=== PATIENT | male | born 1970 | race Two or more races ===

== ENCOUNTER → 2020-10-24 13:37 | Outpatient (BNVA) | payer OTHER, SELFPAY | PROVIDERS: PCP Internal Medicine; Visit Provider Nurse Practitioner | DX: Z76.89 Persons encountering health services in other specified circumstances (principal) | CPT/HCPCS: Q3014 ==

== ENCOUNTER → 2020-11-28 08:41 | Outpatient (BNVA) | payer OTHER, SELFPAY | PROVIDERS: Visit Provider Physician Assistant | DX: Z13.89 Encounter for screening for other disorder (principal) | CPT/HCPCS: Q3014 ==

== ENCOUNTER 2021-04-10 12:50 | Outpatient (REF) | payer OTHER, SELFPAY ==
[2021-04-10 14:37] LABS: Alanine Aminotransferase 15 U/L (0-40); Albumin Level 3.9 g/dL (3.5-5.0); Alkaline Phosphatase 93 U/L (39-117); Anion Gap 12 (12-20); Aspartate Amino Transferase 14 U/L (5-37); Bilirubin Total 1.9 mg/dL (0.0-1.0); Blood Urea Nitrogen 7 mg/dL (9-16); Calcium 9.5 mg/dL (8.4-10.2); Carbon Dioxide 25 mmol/L (22-29); Chloride 109 mmol/L (96-108); Estimated Glomerular Filt Rate > 60; Glucose Random 149 mg/dL (60-115); Potassium 4.3 mmol/L (3.3-5.1); Sodium 142 mmol/L (135-145); Total Protein 6.9 g/dL (6.5-8.0)
[2021-04-10 14:57] LABS: Ferritin 140 ng/mL (20-250); TSH reflex Free T4 0.65 uIU/mL (0.32-4.0)
[2021-04-14 13:17] LABS: Gliadin Deamidated IgA Ab 5 Units; Gliadin Deamidated IgG Ab 2 Units
[2021-04-14 17:46] LABS: Transglutaminase Ab IgG 3 U/mL; Transglutaminase IgA 1 U/mL
== END 2021-04-10 12:51 | disposition home or self-care (01) ==
LOC: HO.LAB 12:50
PROVIDERS: PCP Internal Medicine; Referring Provider Internal Medicine; Visit Provider Nurse Practitioner
DX: K58.0 Irritable bowel syndrome with diarrhea (principal); K21.9 Gastro-esophageal reflux disease without esophagitis; D50.9 Iron deficiency anemia, unspecified; G71.11 Myotonic muscular dystrophy; R63.4 Abnormal weight loss; R00.0 Tachycardia, unspecified; Z12.11 Encounter for screening for malignant neoplasm of colon
CPT/HCPCS: 36415; 80053; 82728; 83516; 84443; 99212

== ENCOUNTER → 2021-05-26 12:24 | Outpatient (BNVA) | payer OTHER, SELFPAY | PROVIDERS: PCP Internal Medicine; Visit Provider Nurse Practitioner | CPT/HCPCS: Q3014 ==

== ENCOUNTER 2021-06-19 08:55 | Outpatient (REF) | payer OTHER, SELFPAY ==
--- NOTE | ~2021-06-19 | US_ITS ---
EXAMINATION: US ABDOMEN COMPLETE CLINICAL INFORMATION: [place]. COMPARISON: Abdominal ultrasound 12/31/2018. CT abdomen and pelvis 09/17/2019. MRI abdomen 10/29/2019. TECHNIQUE: Real-time imaging of the abdominal viscera. FINDINGS: PANCREAS: Head and body the pancreas are normal. The tail is not well visualized ABDOMINAL AORTA: The proximal, mid, and distal segments are normal in caliber. INFERIOR VENA CAVA: Visualized portions are normal. LIVER: Normal. The liver is normal in size. The liver contour is normal. Parenchymal echogenicity is normal. No focal hepatic lesion. There is no intrahepatic biliary duct dilatation seen. GALLBLADDER: The gallbladder appears contracted. The gallbladder wall may be thickened and echogenic. There may be a gallstone. This is similar to previous exam. COMMON BILE DUCT: Normal in caliber measuring 0.3 cm in diameter. RIGHT KIDNEY: There is a 1.3 x 1 x 1.2 cm cyst exophytic to the midpole. No hydronephrosis or renal calculi. The kidney measures 9.5 cm in maximum dimension. LEFT KIDNEY: Normal. No hydronephrosis. No renal calculi or focal parenchymal lesions. The kidney measures 9.5 cm in maximum dimension. SPLEEN: The spleen measures 12.8 cm in maximum dimension. This is similar to previous exam. FREE FLUID: None. US/US abdomen complete IMPRESSION: Normal-appearing liver. Contracted gallbladder. Gallbladder wall appears thickened and echogenic and there may be a gallstone. Upper normal-size spleen. Limited visualization of the tail of the pancreas.
== END 2021-06-19 08:56 | disposition home or self-care (01) ==
LOC: HO.US 08:55
PROVIDERS: PCP Internal Medicine; Visit Provider Nurse Practitioner
DX: K75.81 Nonalcoholic steatohepatitis (NASH) (principal)
CPT/HCPCS: 76700

== ENCOUNTER → 2021-07-07 15:51 | Outpatient (BNVA) | payer OTHER, SELFPAY | PROVIDERS: PCP Internal Medicine; Visit Provider Nurse Practitioner | DX: Z13.89 Encounter for screening for other disorder (principal) | CPT/HCPCS: Q3014 ==

== ENCOUNTER 2021-10-11 12:59 | Outpatient (REF) | payer OTHER, SELFPAY ==
--- NOTE | ~2021-10-11 | XR_ITS ---
EXAMINATION: XR FOOT, LEFT CLINICAL INFORMATION: Left foot pain. COMPARISON: No similar priors. TECHNIQUE: AP, lateral, and oblique views of the left foot. FINDINGS: Decreased bony mineralization. Joint spaces are in anatomic alignment. Subtle cortical irregularity in the dorsal surface of the navicular bone at the talonavicular articulation favors to represent degenerative osteoarthritis. Calcaneal enthesophytes. There is diffuse soft tissue thickening without unexpected radiopaque foreign bodies. XR/XR foot LT 2V IMPRESSION: Cortical irregularities of the navicular bone adjacent to the talonavicular articulation are likely degenerative enthesophytes. Correlate for pain at this site as a small fracture cannot be entirely excluded.
--- NOTE | ~2021-10-11 | XR_ITS ---
EXAMINATION: XR LUMBOSACRAL SPINE CLINICAL INFORMATION: Lower back pain. COMPARISON: No similar priors. TECHNIQUE: Three views of the lumbosacral spine. FINDINGS: Transitional anatomy with lumbarization of S1. No evidence of acute fractures or malalignment. Mild disc space narrowing and facet arthropathy in the lower lumbar spine. Sacroiliac joints are symmetric. Visualized bony structures of the pelvis are within normal limits. Nonobstructive bowel gas pattern. XR/XR lumbar spine 2-3V IMPRESSION: No acute fractures or malalignment. Mild lumbar spondylosis.
== END 2021-10-11 13:00 | disposition home or self-care (01) ==
LOC: HO.XRAY 12:59
PROVIDERS: PCP Internal Medicine; Visit Provider Internal Medicine
DX: M79.672 Pain in left foot (principal); M54.9 Dorsalgia, unspecified
CPT/HCPCS: 72100; 73620

== ENCOUNTER 2021-10-17 10:23 | Emergency (ER) | payer OTHER, SELFPAY ==
--- NOTE | ~2021-10-17 | XR_ITS ---
EXAMINATION: LUMBAR SPINE AND SACRUM AND COCCYX X-RAYS CLINICAL INFORMATION: Pain post fall COMPARISON: Previous lumbar spine x-ray 10/11/2021 TECHNIQUE: 3 views of the lumbar spine and 3 views of the sacrum and coccyx FINDINGS: Lumbar spine: Bone alignment is normal. No fracture or dislocation is seen. Disc spaces are normal. There is mild facet arthritis of the lower lumbar spine. Sacrum and coccyx: Bone alignment is normal. No fracture or dislocation is seen. The sacroiliac joints are normal. There are degenerative changes at the hip joints. XR/XR lumbar spine 2-3V IMPRESSION: No fracture or dislocation.
--- NOTE | ~2021-10-17 | XR_ITS ---
EXAMINATION:XR foot LT 2V, XR ankle LT 2V VIEWS ACQUIRED: 2 views ankle, 3 views foot frontal lateral oblique CLINICAL INFORMATION: Reason for Exam fall and pain COMPARISON: None available at the time of this dictation. FINDINGS: Nondisplaced horizontal fracture at the base of the proximal phalanx great toe. There are no other fractures or dislocation. Intertarsal and tarsometatarsal joints are intact. There are small posterior and inferior calcaneal spurs. Ankle mortise is preserved. Talar dome is intact. Medial and lateral malleoli are normal.. Intertarsal, tarsometatarsal, metatarsophalangeal and interphalangeal joints are intact. Surrounding soft tissues is normal. , XR/XR ankle LT 2V IMPRESSION: *Nondisplaced horizontal fracture through the base of the proximal phalanx great toe. *No dislocation, no other fractures. *Small calcaneal spurs.
--- NOTE | ~2021-10-17 | XR_ITS ---
EXAMINATION: LUMBAR SPINE AND SACRUM AND COCCYX X-RAYS CLINICAL INFORMATION: Pain post fall COMPARISON: Previous lumbar spine x-ray 10/11/2021 TECHNIQUE: 3 views of the lumbar spine and 3 views of the sacrum and coccyx FINDINGS: Lumbar spine: Bone alignment is normal. No fracture or dislocation is seen. Disc spaces are normal. There is mild facet arthritis of the lower lumbar spine. Sacrum and coccyx: Bone alignment is normal. No fracture or dislocation is seen. The sacroiliac joints are normal. There are degenerative changes at the hip joints. XR/XR sacrum coccyx min 2V IMPRESSION: No fracture or dislocation.
--- NOTE | ~2021-10-17 | XR_ITS ---
EXAMINATION:XR foot LT 2V, XR ankle LT 2V VIEWS ACQUIRED: 2 views ankle, 3 views foot frontal lateral oblique CLINICAL INFORMATION: Reason for Exam fall and pain COMPARISON: None available at the time of this dictation. FINDINGS: Nondisplaced horizontal fracture at the base of the proximal phalanx great toe. There are no other fractures or dislocation. Intertarsal and tarsometatarsal joints are intact. There are small posterior and inferior calcaneal spurs. Ankle mortise is preserved. Talar dome is intact. Medial and lateral malleoli are normal.. Intertarsal, tarsometatarsal, metatarsophalangeal and interphalangeal joints are intact. Surrounding soft tissues is normal. , XR/XR foot LT 2V IMPRESSION: *Nondisplaced horizontal fracture through the base of the proximal phalanx great toe. *No dislocation, no other fractures. *Small calcaneal spurs.
[2021-10-17 10:38] VITALS: BP 117/79; PULSE 90; RESP 19; TEMP 36.6; O2SAT 99; BMI 24.0
--- NOTE | 2021-10-17 10:41 | ED.FALL ---
HPI - Fall General Chief Complaint: Fall Stated Complaint: lt ankle pain s/p fall two days ago Time Seen by Provider: 10/17/21 10:39 Source: patient and EMS Mode of arrival: EMS Limitations: no limitations History of Present Illness HPI Narrative: [age] year male came in by ambulance for evaluation after mechanical fall. 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 Patient sustained a mechanical fall, as reported by EMS patient and mother live in a poor condition patient gets DISTRIBUTION MANAGER service for just helpful shower, otherwise unable to cook and prepare food for himself, order from outside. Related Data Home Medications Medication Instructions Recorded Confirmed famotidine 40 mg tablet 40 mg PO BEDTIME 10/24/20 08/30/21 Previous Rx's Medication Instructions Recorded loperamide 2 mg tablet 2 mg PO TID PRN #30 tab 06/13/21 (Anti-Diarrheal (loperamide)) food supplemt, lactose-reduced 1 ea PO BID 25 Days #5688 ml 08/30/21 (Ensure) loperamide 2 mg capsule 2 mg PO Q6H PRN #30 cap 09/25/21 Allergies Allergy/AdvReac Type Severity Reaction Status Date / Time cephalexin Allergy Intermediate diarrhea Verified 08/30/21 10:24 pioglitazone Allergy Intermediate diarrhea Verified 08/30/21 10:24 metformin AdvReac Intermediate diarrhea Verified 08/30/21 10:24 Review of Systems Review of Systems: All other systems are reviewed and are negative Constitutional: Reports as per HPI and Reports no additional constitutional complaints Eyes: Reports as per HPI and Reports no additional eye complaints Reports system reviewed and no additional complaints, except as documented Cardiovascular: Reports as per HPI and Reports no additional cardiovascular complaints Respiratory: Reports as per HPI and Reports no additional respiratory complaints Gastrointestinal: Reports as per HPI and Reports no additional gastrointestinal complaints Genitourinary: Reports no additional female genitourinary complaints Musculoskeletal: Reports no additional musculoskeletal complaints Skin/Breast: Reports system reviewed and no additional complaints, except as docu Psychiatric: Reports no additional psychiatric complaints Endocrine: Reports no additional endocrine complaints Hematologic/Lymphatic: Reports no additional hematologic/lymphatic complaints Allergic/Immunologic: Reports no additional allergic/immunologic complaints Reports system reviewed and no additional complaints, except as documented and Reports Abnormal speech present [facility] Past Medical History Medical History Back pain Blurry vision Family history of hypertension Hematuria Hypovitaminosis D Left foot pain Microcytic anemia Myotonic dystrophy Polyarthralgia Proteinuria Shoulder pain Surgical History No pertinent past surgical history Family History Family History Father Pacemaker Mother Arthritis Sister In good health Son In good health Social History Social History Household Members: Family Housing: Apartment Alcohol intake: former Patient Tobacco Use Status: Never used Tobacco e-Cigarette/Vaping Use: Never Used Second Hand Smoke Exposure: No Advance Directives: No Advance Directives Information Provided: No service: No Current occupational status: disabled Physical Exam Vital Signs: Vital Signs: Last Vital Signs Temp 98 F 10/17/21 10:38 Pulse 97 10/17/21 13:24 Resp 16 10/17/21 12:57 BP 96/65 10/17/21 13:24 Pulse Ox 96 10/17/21 13:24 BMI result Body Mass Index 24.0 Vital signs have been reviewed as appeared to be correct. Blood pressure normal. Heart rate normal. Respiration rate normal. Temperature normal. Oxygen saturation normal. Appearance: Alert. Oriented X3. No acute distress. Head: Normal external exam. Normocephalic. Atraumatic. No Le signs noted. No raccoon eyes noted Eyes: PERRLA. EOMI. Conjunctiva and sclera normal. Eyelids normal. ENT: TM's Normal. Pharynx normal. Uvula midline. Moist mucous membranes. No trismus noted. No drooling noted. No muffled voice noted. Neck: Normal inspection. Neck supple. FROM. No adenopathy. Thyroid Normal. No meningeal signs. No neck mass noted. CVS: Normal heart rate and rhythm. Heart sound normal. No murmurs noted. Pulses normal throughout. Respiratory: No respiratory distress. Painless inspiration. Breath sounds normal. No wheezes/rales/rhonchi noted. Chest nontender. No accessory muscle usage noted or decreased air movement noted. Abdomen: Soft and nontender. Bowel sounds normal in all 4 quadrants. No distention noted. No organomegaly noted. No visible injury noted. Back: No CVA tenderness. Full range of motion noted. Skin: Skin warm and dry. Normal skin color. Normal skin turgor. No rashes/lesions/lacerations noted. Extremities: Left foot exam: Mild tenderness over the great toe, in the left foot, no deformity, no step-off, neurovascularly is intact. Neuro: Oriented X 3. Course Course Course Narrative: Assessment and plan. [age] old male history of myotonic dystrophy status post mechanical fall as a result has left great toe fracture, reportedly by EMS to living condition at home with his mother, we obtained PT/case management social worker consultation while in the ED , PT is recommending home therapy with [facility] which will be arranged for by our case management social worker, patient also is active with [facility] client and has funeral home assistant that was contacted to evaluate the situation at home. Will apply postop shoe, unfortunately patient will not do well with crutches due to chronic muscular disease. MDM - Fall Lab Data Attestation: I reviewed the patient's lab results. Labs: Lab Results 10/17/21 Range/Units 12:54 Influenza Type A (PCR) NEGATIVE (Negative) Influenza Type B (PCR) NEGATIVE (Negative) RSV RNA Qual (PCR) NEGATIVE (Negative) SARS-CoV-2 RNA (RT-PCR) NEGATIVE (Negative) Imaging Data Left foot/ankle x-ray: Attestation: I personally reviewed and interpreted this imaging study as follows: Radiologist's impression: Nondisplaced horizontal fracture through the base of the proximal phalanx great toe. ? *No dislocation, no other fractures. ? *Small calcaneal spurs. Lumbar spine x-ray: Attestation: I personally reviewed and interpreted this imaging study as follows: Radiologist's impression: No fracture or dislocation.? Discharge Plan Discharge Clinical Impression: Fall, Fracture, phalanx, foot Patient Disposition: Home, Self-Care Instructions: Toe Fracture (ED), Post Surgical Shoe (ED) Prescriptions: No Action loperamide [Anti-Diarrheal (loperamide)] 2 mg tablet 2 mg PO TID PRN (Reason: for diarrhea) Qty: 30 RF: 1 loperamide 2 mg capsule 2 mg PO Q6H PRN (Reason: loose stool) Qty: 30 RF: 0 Ensure Liquid 1 ea PO BID 25 Days Qty: 5688 RF: 6 famotidine 40 mg tablet 40 mg PO BEDTIME RF: 0 Referrals: Thomas ARRIETA [Outside] - 2 days Porter Tan MD [Physician] - 1 week Bess Irving MD [Primary Care Provider] - 1 week
[2021-10-17 12:57] VITALS: BP 96/65; PULSE 97; RESP 16; O2SAT 96
[2021-10-17 13:24] VITALS: BP 96/65; PULSE 97; O2SAT 96
[2021-10-17 13:42] LABS: Influenza A PCR NEGATIVE (Negative); Influenza B PCR NEGATIVE (Negative); Resp Syncy Virus RNA Qual PCR NEGATIVE (Negative); SARS COV2 PCR INHOUSE NEGATIVE (Negative)
--- NOTE | 2021-10-17 13:50 | MHC.CM.ED ---
Received case management consult from Dr Desai. Patient came to ER via EMS after a fall. EMS was concerned patient not safe at home. Work up revealed left great toe fx. Physical therapy eval completed. Home services are recommended. Patient and his mother are well known to case management. Met with patient in regards to discharge planning. Patient lives with his mother, uses a walker for mobility and receives services through [facility]. Patient feels he can safely return home. Action chair van booked. [facility] with chart. T/W left a voicemail for Yun at [facility] requesting auth for [facility] for physical therapy and requesting Yun reach out to patient's healthcare insurance sales agent about EMS concerns. Referral made via [employer] to [facility]. Continue to monitor for d/c needs.
== END 2021-10-17 14:21 | disposition home or self-care (01) ==
PROVIDERS: Emergency Provider Emergency Medicine; PCP Internal Medicine
DX: S92.415A Nondisplaced fracture of proximal phalanx of left great toe, initial encounter for closed fracture (principal); W17.89XA Other fall from one level to another, initial encounter; G71.11 Myotonic muscular dystrophy; Y93.9 Activity, unspecified; Y92.039 Unspecified place in apartment as the place of occurrence of the external cause; Y99.9 Unspecified external cause status
CPT/HCPCS: 0241U; 72100; 72220; 73600; 73620; 97162; 99283; 99284

== ENCOUNTER 2022-04-25 10:59 | Outpatient (REF) | payer OTHER, SELFPAY ==
[2022-04-25 11:55] LABS: Basophils Percent Auto 0.4 % (0-2); Eosinophils Absolute Auto 0.2 X10*3/uL (0.0-0.4); Eosinophils Percent Auto 2.1 % (0-4); Hematocrit 40.6 % (42.0-52.0); Imm Gran Abs Auto 0.03 X10*3/uL (0.00-0.03); Imm Gran Pct Auto 0.4 % (0.0-0.4); Lymphocytes Absolute Auto 2.5 X10*3/uL (1.2-4.9); Lymphocytes Percent Auto 34.1 % (20-40); MANUAL DIFF FLAG SCAN; Mean Corpuscular HGB Conc 29.6 g/dl (31.0-36.0); Mean Corpuscular Hemoglobin 20.8 pg (27.0-33.0); Mean Corpuscular Volume 70.5 fL (80.0-98.0); Monocytes Absolute Auto 0.3 X10*3/uL (0.1-1.2); Monocytes Percent Auto 4.7 % (2-11); Neutrophils Absolute Auto 4.2 x10*3/uL (2.0-8.3); Neutrophils Percent Auto 58.3 % (45-73); PLT CLUMP 1; Red Blood Count 5.76 X10*6/uL (4.60-5.80); Red Cell Distribution Width 16.3 % (11.0-16.0); SCAN SMEAR FLAG 1
[2022-04-25 12:19] LABS: Platelet Count 109 X10*3/uL (160-400); SLIDE REVIEW VERIFIED; White Blood Count 7.2 X10*3/uL (4.8-10.8)
[2022-04-25 12:26] LABS: Alanine Aminotransferase 7 U/L (0-40); Albumin Level 4.1 g/dL (3.5-5.0); Alkaline Phosphatase 72 U/L (39-117); Anion Gap 15 (12-20); Aspartate Amino Transferase 15 U/L (5-37); Bilirubin Total 1.8 mg/dL (0.0-1.0); Blood Urea Nitrogen 7 mg/dL (9-16); Calcium 9.5 mg/dL (8.4-10.2); Carbon Dioxide 25 mmol/L (22-29); Chloride 114 mmol/L (96-108); Estimated Glomerular Filt Rate > 60; Glucose Random 120 mg/dL (60-115); Iron 63 mcg/dL (45-160); Percent Iron Saturation 24 % (15-50); Potassium 4.3 mmol/L (3.3-5.1); Sodium 150 mmol/L (135-145); Total Iron Binding Capacity 268 mcg/dL (228-428); Unsaturated Iron Binding 205 ug/dL
[2022-04-25 12:35] LABS: Vitamin D 25-OH Total 32.7 ng/mL (>30)
[2022-04-25 12:41] LABS: Ferritin 226 ng/mL (20-250); TSH reflex Free T4 0.27 uIU/mL (0.32-4.0)
[2022-04-25 13:59] LABS: Free T4 (Free Thyroxine) 1.09 ng/dL (0.71-1.85)
[2022-04-27 12:36] LABS: Alpha Fetoprotein 2.9 ng/mL (<6.1)
[2022-04-30 13:31] LABS: Anti Nuclear Antibody Screen NEGATIVE (NEGATIVE)
[2022-04-30 14:26] LABS: Mitochondrial Antibodies NEGATIVE (NEGATIVE)
[2022-05-01 11:37] LABS: Smooth Muscle Antibody <20 U (<20)
== END 2022-04-25 11:00 | disposition home or self-care (01) ==
LOC: HO.LAB 10:59
PROVIDERS: PCP Internal Medicine; Visit Provider Nurse Practitioner
DX: K58.0 Irritable bowel syndrome with diarrhea (principal); K75.81 Nonalcoholic steatohepatitis (NASH); R63.4 Abnormal weight loss; D50.9 Iron deficiency anemia, unspecified; R00.0 Tachycardia, unspecified; E55.9 Vitamin D deficiency, unspecified
CPT/HCPCS: 36415; 80053; 82105; 82306; 82728; 83540; 84439; 84443; 85025; 86015; 86038; 86039; 86255; 86256; 99212

== ENCOUNTER → 2022-05-15 15:00 | Outpatient (BNVA) | payer OTHER, SELFPAY | PROVIDERS: PCP Internal Medicine; Visit Provider Internal Medicine Endocrinology, Diabetes & Metabolism | DX: R94.6 Abnormal results of thyroid function studies (principal) | CPT/HCPCS: 99202 ==

== ENCOUNTER 2022-05-20 10:03 | Emergency (ER) | payer OTHER, SELFPAY ==
--- NOTE | ~2022-05-20 | CT_ITS ---
EXAMINATION: CT ABDOMEN AND PELVIS WITHOUT CONTRAST CLINICAL INFORMATION: Fevers, general weakness, nausea/diarrhea COMPARISON: 09/17/2019 TECHNIQUE: Multidetector volumetric imaging was performed from the superior aspect of the liver through the pubic symphysis. Sagittal and coronal reformatted images were obtained on the technologist's workstation. This CT examination was performed using dose optimization techniques as appropriate, variously including the following: *Automated exposure control *Adjustment of mA and/or kV according to patient size (this includes techniques or standardized protocols for targeted exams where dose is matched to indication/reason for exam; i.e. extremities or head) *Use of iterative reconstruction technique DLP: 452 mGy-cm FINDINGS: LUNG BASES: Heart is enlarged. Atelectasis in the lung bases. LIVER, GALLBLADDER, AND BILIARY TREE: The liver is normal in size, shape, and attenuation. No focal hepatic lesion or biliary ductal dilatation is present. Cholelithiasis. PANCREAS: Unremarkable. SPLEEN: Unremarkable. ADRENAL GLANDS: Unremarkable. KIDNEYS AND URETERS: The kidneys are normal in size, shape, and attenuation. No hydronephrosis, hydroureter, or calculi seen. No perinephric stranding. Hyperdense cyst in the posterior midpole of the right kidney unchanged compared with 2019 BLADDER: Unremarkable. GASTROINTESTINAL TRACT: Small hiatal hernia. The small and large bowel are unremarkable. The appendix is unremarkable. ABDOMINAL WALL: No significant hernia is appreciated. LYMPH NODES: Normal. VASCULAR: Atherosclerotic calcification scattered throughout the abdominal aorta without aneurysm. PELVIC VISCERA: The prostate and seminal vesicles are unremarkable. OSSEOUS STRUCTURES: Unremarkable. CT/CT abdomen pelvis wo con IMPRESSION: No acute abnormality in the abdomen or pelvis. Cholelithiasis. Small hiatal hernia. Fleischner guidelines were followed.
--- NOTE | ~2022-05-20 | XR_ITS ---
EXAMINATION: XR CHEST CLINICAL INFORMATION: Cough, weight loss COMPARISON: 06/17/2020 TECHNIQUE: 2 views of the chest were obtained. FINDINGS: Multiple wires overlie the chest. Cardiomediastinal silhouette is stable. No consolidation, pleural effusion or pneumothorax. XR/XR chest 2V IMPRESSION: No acute cardiopulmonary process.
[2022-05-20 10:40] VITALS: BP 97/65; PULSE 119; RESP 18; TEMP 36.7; O2SAT 95; BMI 16.6
[2022-05-20 11:46] VITALS: BP 98/69; PULSE 97; RESP 18; O2SAT 97
[2022-05-20 11:46] LABS: Basophils Percent Auto 0.2 % (0-2); Imm Gran Abs Auto 0.02 X10*3/uL (0.00-0.03); Imm Gran Pct Auto 0.2 % (0.0-0.4); MANUAL DIFF FLAG NO; Mean Corpuscular HGB Conc 30.7 g/dl (31.0-36.0); Mean Corpuscular Hemoglobin 21.1 pg (27.0-33.0); Mean Corpuscular Volume 68.8 fL (80.0-98.0); Monocytes Percent Auto 5.7 % (2-11); Red Cell Distribution Width 15.9 % (11.0-16.0); SCAN SMEAR FLAG 1
[2022-05-20 11:48] LABS: Eosinophils Absolute Auto 0.1 X10*3/uL (0.0-0.4); Eosinophils Percent Auto 0.9 % (0-4); Hematocrit 40.7 % (42.0-52.0); Hemoglobin 12.5 g/dl (14.0-18.0); Lymphocytes Absolute Auto 1.8 X10*3/uL (1.2-4.9); Lymphocytes Percent Auto 21.9 % (20-40); Monocytes Absolute Auto 0.5 X10*3/uL (0.1-1.2); Neutrophils Absolute Auto 5.8 x10*3/uL (2.0-8.3); Neutrophils Percent Auto 71.1 % (45-73); Platelet Count 163 X10*3/uL (160-400); Red Blood Count 5.92 X10*6/uL (4.60-5.80); White Blood Count 8.1 X10*3/uL (4.8-10.8)
[2022-05-20 11:50] LABS: PLT ABN DIST 1
[2022-05-20 11:52] LABS: INTERNATIONAL NORM RATIO 1.3 (0.9-1.1); Prothrombin Time 14.6 SEC (10.0-13.1)
[2022-05-20 12:02] LABS: COVID-19 Test Negative (Negative)
--- NOTE | 2022-05-20 12:08 | ED.GENADULT ---
HPI - General Adult General Chief complaint: Nausea/Vomiting/Diarrhea Stated complaint: WEAKNESS, DIARRHEA, FEVER Time Seen by Provider: 05/20/22 10:28 Source: patient and EMS Mode of arrival: EMS Limitations: other (Poor historian) History of Present Illness HPI narrative: 51-year-old male with a past medical history of muscular dystrophy still able to function who lives with his mother who helps care for him presenting to the ED with complaints of generalized weakness with associated subjective fever/chills/fatigue/malaise with nausea/diarrhea and a dry cough since yesterday worse today. He reports the diarrhea is normal color and it is semi formed. He denies any measured fevers, dizziness, headaches, neck pain/stiffness, sore throat, nasal congestion/rhinorrhea, sputum production, chest pain or shortness of breath, dyspnea on exertion, orthopnea, palpitations, paresthesias, abdominal pain, vomiting, back pain, flank pain, dysuria, hematuria, abnormal penile discharge, lower extremity edema or calf tenderness, rashes, recent travel or sick contacts, recent antibiotic usage or hospitalization, others with similar symptoms, possible bad food exposure or any other symptoms complaints or concerns at this time. MD complaint: Generalized weakness, subjective fevers, nausea, cough, diarrhea Onset (ago): day(s) (2) Related Data Home Medications Medication Instructions Recorded Confirmed famotidine 40 mg tablet 40 mg PO BEDTIME 10/24/20 05/01/22 Previous Rx's Medication Instructions Recorded urinal portable #1 ea 10/27/21 Shower Chair #1 ea 11/14/21 bathroom wipes #200 ea 01/31/22 acetaminophen 500 mg tablet 1,000 mg PO Q6H PRN pain 30 days 03/11/22 #120 tabs Gait belt #1 ea 03/26/22 adult diapers briefs #240 ea 04/11/22 raise toilet seat #1 ea 04/11/22 underpads 30 X 36 (Certainty #48 ea 04/11/22 Underpads) wheelchair with leg rest #1 ea 04/11/22 loperamide 2 mg capsule 2 mg PO Q6H PRN loose stool #30 04/24/22 caps eluxadoline 75 mg tablet (Viberzi) 75 mg PO BID #60 tabs 04/25/22 food supplemt, lactose-reduced 1 ea PO BID 25 days #5,688 mL 05/01/22 (Ensure oral liquid) hydrocortisone 1 % topical cream 1 appl topical TID PRN skin 05/01/22 (Anti-Itch (hydrocortisone)) irritation 2 weeks #28.4 grams guaifenesin 600 mg tablet, 600 mg PO BID PRN congestion 5 05/03/22 extended release 12 hr days #10 tabs azithromycin 250 mg tablet See Rx Instructions PO .COMPLEX #6 05/20/22 tabs codeine 10 mg-guaifenesin 100 mg/5 5 ml PO Q6H PRN cold symptoms #120 05/20/22 mL oral liquid (Guaifenesin AC) mL Allergies Allergy/AdvReac Type Severity Reaction Status Date / Time cephalexin Allergy Intermediate diarrhea Verified 05/15/22 15:04 pioglitazone Allergy Intermediate diarrhea Verified 05/15/22 15:04 metformin AdvReac Intermediate diarrhea Verified 05/15/22 15:04 Review of Systems Review of Systems: Constitutional : No Weight loss, + Fever, + Chills, No Night Sweats, + Fatigue, + Malaise ENT/Mouth : No Hearing loss, No Ear Pain, No Nasal Congestion, No Sinus Pain, No Hoarseness, No sore throat, No Rhinorrhea, No Swallowing Difficulty Eyes: No Eye Pain, No Swelling, No Redness, No Foreign Body, No Discharge, No Vision Changes Cardiovascular : No Chest Pain, No SOB, No Dyspnea on Exertion, No Orthopnea, No Edema, No Palpitations Respiratory : + Cough, No Sputum, No Wheezing, No Smoke Exposure, No Dyspnea Gastrointestinal : + Nausea, No Vomiting, + Diarrhea, No Constipation, No abdominal Pain, No Hematochezia, No Melena Genitourinary : no irregular bleeding, No Dysuria, No Urinary Frequency, No Hematuria, No Urinary Incontinence, No Urgency, No Flank Pain, No Urinary Flow Changes, No Hesitancy Musculoskeletal : No joint pain, + Myalgias, No Joint Swelling Skin : No Skin Lesions, No rash Neuro : + General Weakness, No Focal weakness, No Numbness, No Paresthesias, No Loss of Consciousness, No Dizziness, No Headache Psych : No Anxiety/Panic, No Depression, No SI/HI/AH/VH, No Social Issues, Heme/Lymph: No Bruising, No Bleeding,No Lymphadenopathy Endocrine : No Polyuria, No Polydipsia, No Temperature Intolerance Yes all other systems are reviewed and are negative [facility] Past Medical History Attestation statement: The following information was validated with the patient. Source: old records reviewed and nursing notes reviewed Medical History Back pain Blurry vision Family history of hypertension Hematuria Hypovitaminosis D Left foot pain Microcytic anemia Myotonic dystrophy Polyarthralgia Proteinuria Shoulder pain Toe fracture Urinary incontinence Surgical History No pertinent past surgical history Family History Family History Father Pacemaker Mother Arthritis Sister In good health Son In good health Social History Social History Household Members: Family Housing: Apartment Alcohol intake: never Patient Tobacco Use Status: Never used Tobacco e-Cigarette/Vaping Use: Never Used Second Hand Smoke Exposure: No Use of substances other than those prescribed or required for medical reasons: No Advance Directives: Yes Advance Directives Information Provided: Yes Advance Directives on File: No service: No Current occupational status: disabled Cognitive needs: Yes Hearing needs: No Vision needs: No Physical Exam ED Vital Signs: Vital Signs - 24 hr 05/20/22 10:40 05/20/22 11:46 05/20/22 12:37 Temperature 98.0 F 97.6 F Pulse Rate 119 H 97 96 Respiratory Rate 18 18 16 Blood Pressure 97/65 98/69 94/69 Pulse Oximetry 95 97 99 Oxygen Delivery Method Room Air Room Air Room Air 05/20/22 15:33 Temperature 98 F Pulse Rate Respiratory Rate 16 Blood Pressure 132/90 H Pulse Oximetry 98 Oxygen Delivery Method Room Air BMI result Body Mass Index 16.6 vital signs have been reviewed as normal and appeared to be correct. Blood pressure normal. Heart rate 119 Respiration rate normal. Temperature normal. Oxygen saturation normal. Appearance: Alert. Oriented X3. No acute distress. Head: Normal external exam. Normocephalic. Atraumatic. Eyes: PERRLA. EOMI. Conjunctiva and sclera normal. Eyelids normal. ENT: EAC normal. TM's Normal. Pharynx normal. Uvula midline. Moist mucous membranes. No lesions/ulcerations or masses noted on the tongue. Normal voice. No trismus noted. No drooling noted. No muffled voice noted. Neck: Normal inspection. Neck supple. FROM. No adenopathy. Thyroid Normal. No tracheal deviation noted. No crepitus is noted. No meningeal signs. No neck mass noted. CVS: Normal heart rate and rhythm. Heart sound normal. Pulses normal throughout. No murmurs/rales/gallops. Respiratory: No respiratory distress. Painless inspiration. Breath sounds normal. No wheezes/rales/rhonchi noted. Chest nontender. No accessory muscle usage noted or decreased air movement noted. Abdomen: Soft and nontender. Bowel sounds normal in all 4 quadrants. No distention noted. No organomegaly noted. No visible injury noted. Back: No CVA tenderness. Full range of motion noted. Nontender. Skin: Skin warm and dry. Normal skin color. Poor skin turgor. No rashes/lesions/lacerations noted. Extremities: No lower extremity edema. No calf tenderness is noted. Extremities nontender. Neuro: Oriented X 3. CN's II-XII intact bilaterally? Vascular: + radial pulses/+ 2 distal pedal pulses/+2 dorsalis pedis b/l. Normal cap refill. No cyanosis noted to upper extremity nails and lower extremity toes nails. Course Course Course Narrative: 10:30am - 51-year-old male with a past medical history of muscular dystrophy still able to function who lives with his mother who helps care for him presenting to the ED with complaints of generalized weakness with associated subjective fever/chills/fatigue/malaise with nausea/diarrhea and a dry cough since yesterday worse today. He reports the diarrhea is normal color and it is semi formed. Plan: Labs, EKG, chest x-ray, COVID swab, UA, CT scan of abd/pelvis without contrast then re-evaluate Reevaluation(s) Reevaluation #1: - labs reviewed patient is with a baseline anemia which is improved when compared to prior. Total bilirubin 3.2 this is increased when compared to prior although he has had it at 2.9 and 2019. - troponin 21.1 repeat 3 hours later 21.7 therefore negative delta. - otherwise all other labs are within normal limits. Patient negative for COVID. - chest x-ray within normal limits no acute processes noted. - CT scan of abdomen and pelvis within normal limits no acute processes noted - I spoke to the patient's mother and the patient's REHABILITATION COORDINATOR and they reported that they do not want the patient placed at they want the patient to come back home they were concerned about the patient's cough. I explained to them that he does not have any pneumonia on all his labs are coming back normal. Will DC home with Z-Los for possible bronchitis and Robitussin with codeine. The mother is REHABILITATION COORDINATOR will come pharmacy picking technician the patient. Along with instructions return if any new or worsening symptoms to follow up with primary care provider. Patient/mother and healthcare architect all understand and agree this plan. Time: 15:01 Medical Decision Making Medical Records Medical records reviewed: Yes I reviewed the patient's medical records. Lab Data Lab results reviewed: Yes I reviewed the patient's lab results. Result diagrams: 05/20/22 11:41 05/20/22 14:08 Labs: Lab Results 05/20/22 05/20/22 05/20/22 Range/Units 11:41 11:41 11:41 WBC 8.1 (4.8-10.8) X10*3/uL RBC 5.92 H (4.60-5.80) X10*6/uL Hgb 12.5 L (14.0-18.0) g/dl Hct 40.7 L (42.0-52.0) % MCV 68.8 L (80.0-98.0) fL MCH 21.1 L (27.0-33.0) pg MCHC 30.7 L (31.0-36.0) g/dl RDW 15.9 (11.0-16.0) % Plt Count 163 D (160-400) X10*3/uL MPV Not Reportable Immature Gran % (Auto) 0.2 (0.0-0.4) % Neut % (Auto) 71.1 (45-73) % Lymph % (Auto) 21.9 (20-40) % [place] % (Auto) 5.7 (2-11) % Eos % (Auto) 0.9 (0-4) % Baso % (Auto) 0.2 (0-2) % Lymph # (Auto) 1.8 (1.2-4.9) X10*3/uL [place] # (Auto) 0.5 (0.1-1.2) X10*3/uL Eos # (Auto) 0.1 (0.0-0.4) X10*3/uL Baso # (Auto) 0.0 (0.0-0.2) X10*3/uL Abs Immat Gran (auto) 0.02 (0.00-0.03) X10*3/uL Absolute Neuts (auto) 5.8 (2.0-8.3) x10*3/uL Absolute Nucleated RBC 0.000 (0.0-0.012) X10*3/uL Nucleated RBC % (auto) 0.0 (0.0-0.2) /100WBC PT 14.6 H (10.0-13.1) SEC INR 1.3 H (0.9-1.1) Sodium (135-145) mmol/L Potassium (3.3-5.1) mmol/L Chloride (96-108) mmol/L Carbon Dioxide (22-29) mmol/L Anion Gap (12-20) BUN (9-16) mg/dL Creatinine (0.5-1.4) mg/dL Estim Creat Clear Calc Estimated GFR Random Glucose (60-115) mg/dL Lactic Acid (0.5-2.0) mmol/L Calcium (8.4-10.2) mg/dL Magnesium (1.6-2.6) mg/dL Total Bilirubin (0.0-1.0) mg/dL AST (5-37) U/L ALT (0-40) U/L Alkaline Phosphatase (39-117) U/L Troponin I High Sens (<3.5-35.0) ng/L Total Protein (6.5-8.0) g/dL Albumin (3.5-5.0) g/dL TSH 3rd Generation uIU/mL COVID-19 (MARINE) Negative (Negative) COVID-19 Clin Com See Note 05/20/22 05/20/22 05/20/22 Range/Units 11:41 14:08 14:08 WBC (4.8-10.8) X10*3/uL RBC (4.60-5.80) X10*6/uL Hgb (14.0-18.0) g/dl Hct (42.0-52.0) % MCV (80.0-98.0) fL MCH (27.0-33.0) pg MCHC (31.0-36.0) g/dl RDW (11.0-16.0) % Plt Count (160-400) X10*3/uL MPV Immature Gran % (Auto) (0.0-0.4) % Neut % (Auto) (45-73) % Lymph % (Auto) (20-40) % [place] % (Auto) (2-11) % Eos % (Auto) (0-4) % Baso % (Auto) (0-2) % Lymph # (Auto) (1.2-4.9) X10*3/uL [place] # (Auto) (0.1-1.2) X10*3/uL Eos # (Auto) (0.0-0.4) X10*3/uL Baso # (Auto) (0.0-0.2) X10*3/uL Abs Immat Gran (auto) (0.00-0.03) X10*3/uL Absolute Neuts (auto) (2.0-8.3) x10*3/uL Absolute Nucleated RBC (0.0-0.012) X10*3/uL Nucleated RBC % (auto) (0.0-0.2) /100WBC PT (10.0-13.1) SEC INR (0.9-1.1) Sodium 143 (135-145) mmol/L Potassium 4.5 (3.3-5.1) mmol/L Chloride 108 (96-108) mmol/L Carbon Dioxide 25 (22-29) mmol/L Anion Gap 15 (12-20) BUN 11 D (9-16) mg/dL Creatinine 0.54 (0.5-1.4) mg/dL Estim Creat Clear Calc 100.7 Estimated GFR > 60 Random Glucose 95 (60-115) mg/dL Lactic Acid 0.7 (0.5-2.0) mmol/L Calcium 9.3 (8.4-10.2) mg/dL Magnesium 2.3 (1.6-2.6) mg/dL Total Bilirubin 3.2 H (0.0-1.0) mg/dL AST 18 (5-37) U/L ALT 10 (0-40) U/L Alkaline Phosphatase 90 D (39-117) U/L Troponin I High Sens 21.1 (<3.5-35.0) ng/L Total Protein 6.5 (6.5-8.0) g/dL Albumin 3.8 (3.5-5.0) g/dL TSH 3rd Generation uIU/mL COVID-19 (MARINE) (Negative) COVID-19 Clin Com 05/20/22 05/20/22 Range/Units 14:08 14:22 WBC (4.8-10.8) X10*3/uL RBC (4.60-5.80) X10*6/uL Hgb (14.0-18.0) g/dl Hct (42.0-52.0) % MCV (80.0-98.0) fL MCH (27.0-33.0) pg MCHC (31.0-36.0) g/dl RDW (11.0-16.0) % Plt Count (160-400) X10*3/uL MPV Immature Gran % (Auto) (0.0-0.4) % Neut % (Auto) (45-73) % Lymph % (Auto) (20-40) % [place] % (Auto) (2-11) % Eos % (Auto) (0-4) % Baso % (Auto) (0-2) % Lymph # (Auto) (1.2-4.9) X10*3/uL [place] # (Auto) (0.1-1.2) X10*3/uL Eos # (Auto) (0.0-0.4) X10*3/uL Baso # (Auto) (0.0-0.2) X10*3/uL Abs Immat Gran (auto) (0.00-0.03) X10*3/uL Absolute Neuts (auto) (2.0-8.3) x10*3/uL Absolute Nucleated RBC (0.0-0.012) X10*3/uL Nucleated RBC % (auto) (0.0-0.2) /100WBC PT (10.0-13.1) SEC INR (0.9-1.1) Sodium (135-145) mmol/L Potassium (3.3-5.1) mmol/L Chloride (96-108) mmol/L Carbon Dioxide (22-29) mmol/L Anion Gap (12-20) BUN (9-16) mg/dL Creatinine (0.5-1.4) mg/dL Estim Creat Clear Calc Estimated GFR Random Glucose (60-115) mg/dL Lactic Acid (0.5-2.0) mmol/L Calcium (8.4-10.2) mg/dL Magnesium (1.6-2.6) mg/dL Total Bilirubin (0.0-1.0) mg/dL AST (5-37) U/L ALT (0-40) U/L Alkaline Phosphatase (39-117) U/L Troponin I High Sens 21.7 (<3.5-35.0) ng/L Total Protein (6.5-8.0) g/dL Albumin (3.5-5.0) g/dL TSH 3rd Generation 0.21 uIU/mL COVID-19 (MARINE) (Negative) COVID-19 Clin Com Imaging Data Chest x-ray: Attestation: I personally reviewed and interpreted this imaging study as follows: Radiologist's impression: FINDINGS: Multiple wires overlie the chest. Cardiomediastinal silhouette is stable. No consolidation, pleural effusion or pneumothorax. XR/XR chest 2V IMPRESSION: No acute cardiopulmonary process. CT scan abdomen pelvis without IV contrast: Attestation: I personally reviewed and interpreted this imaging study as follows: Radiologist's impression: FINDINGS: LUNG BASES: Heart is enlarged. Atelectasis in the lung bases.? LIVER, GALLBLADDER, AND BILIARY TREE: The liver is normal in size, shape, and attenuation. No focal hepatic lesion or biliary ductal dilatation is present. Cholelithiasis.? PANCREAS: Unremarkable.? SPLEEN: Unremarkable.? ADRENAL GLANDS: Unremarkable.? KIDNEYS AND URETERS: The kidneys are normal in size, shape, and attenuation. No hydronephrosis, hydroureter, or calculi seen. No perinephric stranding. Hyperdense cyst in the posterior midpole of the right kidney unchanged compared with 2019 BLADDER: Unremarkable.? GASTROINTESTINAL TRACT: Small hiatal hernia. The small and large bowel are unremarkable. The appendix is unremarkable.? ABDOMINAL WALL: No significant hernia is appreciated.? LYMPH NODES: Normal. VASCULAR: Atherosclerotic calcification scattered throughout the abdominal aorta without aneurysm. PELVIC VISCERA: The prostate and seminal vesicles are unremarkable.? OSSEOUS STRUCTURES: Unremarkable.? CT/CT abdomen pelvis wo con IMPRESSION: No acute abnormality in the abdomen or pelvis. Cholelithiasis. Small hiatal hernia. ? ? Fleischner guidelines were followed. ECG Data Attestation: I personally reviewed and interpreted this ECG as follows: Prior ECG tracings: available for review Interpretation: Normal sinus rhythm with sinus arrhythmia with ventricular rate of 91 let with left axis deviation and left bundle-branch block similar compared to prior EKG 12/01/2018 to the stress test that was done/EKG Critical Care Time Critical Care Time Critical Care Time: Yes Total Critical Care Time: 60 Attestation: I personally attest to this time spent taking care of the patient Discharge Plan Discharge Clinical Impression: Bronchitis, Elevated bilirubin Patient Disposition: Home, Self-Care Instructions: Acute Bronchitis (ED) Prescriptions: New azithromycin 250 mg tablet See Rx Instructions .ROUTE .COMPLEX Qty: 6 0RF Rx Instructions: take 500 mg today (day 1), then 250 mg for 4 days (days 2-5) codeine-guaifenesin [Guaifenesin AC] 10-100 mg/5 mL liquid 5 ml PO Q6H PRN (Reason: cold symptoms) Qty: 120 0RF No Action (DME) urinal portable See Rx Instructions .Route .MEDSUPPLY Qty: 1 0RF Rx Instructions: As directed (DME) Shower Chair Misc See Rx Instructions .Route Qty: 1 0RF Rx Instructions: As directed (DME) bathroom wipes See Rx Instructions .Route .MEDSUPPLY Qty: 200 6RF Rx Instructions: As directed acetaminophen 500 mg tablet 1,000 mg PO Q6H PRN (Reason: pain) 30 Days Qty: 120 1RF (DME) Gait belt Misc See Rx Instructions .Route Qty: 1 0RF Rx Instructions: As directed (DME) wheelchair with leg rest See Rx Instructions .Route .MEDSUPPLY Qty: 1 0RF Rx Instructions: As directed (DME) underpads [Certainty Underpads] 30 X 36 pad See Rx Instructions .Route Qty: 48 11RF Rx Instructions: Use 1 to 2 as needed at bedtime (DME) adult diapers briefs small See Rx Instructions .Route .MEDSUPPLY Qty: 240 11RF Rx Instructions: As directed (DME) raise toilet seat See Rx Instructions .Route .MEDSUPPLY Qty: 1 0RF Rx Instructions: As directed loperamide 2 mg capsule 2 mg PO Q6H PRN (Reason: loose stool) Qty: 30 0RF guaifenesin 600 mg tablet extended release 12hr 600 mg PO BID PRN (Reason: congestion) 5 Days Qty: 10 0RF hydrocortisone [Anti-Itch (HC)] 1 % cream 1 appl topical TID PRN (Reason: skin irritation) 14 Days Qty: 28.4 0RF Ensure Liquid 1 ea PO BID 25 Days Qty: 5688 6RF famotidine 40 mg tablet 40 mg PO BEDTIME Viberzi 75 mg tablet 75 mg PO BID Qty: 60 3RF Rx Instructions: must administer with a meal/food Referrals: Bess Irving MD [Primary Care Provider] - 2 days Interventions: ED Discharge Assessment Last Done: 05/20/22 15:47 Discharge Date/Time: 05/20/22 15:47
--- NOTE | 2022-05-20 12:28 | ECG_ITS ---
Test Reason : weakness Blood Pressure : / mmHG Vent. Rate : 091 BPM Atrial Rate : 091 BPM P-R Int : 174 ms QRS Dur : 192 ms QT Int : 446 ms P-R-T Axes : 037 -36 124 degrees QTc Int : 548 ms Normal sinus rhythm with sinus arrhythmia Left axis deviation Left bundle branch block Left ventricular hypertrophy with repolarization abnormality ( R in aVL , Sokolow-Marte , Mason product ) Abnormal ECG When compared with ECG of 27-AUG-2011 07:04, QRS duration has increased Left bundle branch block is now Present ST now depressed in Lateral leads Referred By: Amarilis Dahl Electronically Signed By:NELLIE MIRELES
[2022-05-20 12:37] VITALS: BP 94/69; PULSE 96; RESP 16; TEMP 36.4; O2SAT 99
[2022-05-20 12:38] LABS: Troponin-I High Sensitivity 21.1 ng/L (<3.5-35.0)
[2022-05-20 14:28] LABS: Lactic Acid 0.7 mmol/L (0.5-2.0)
[2022-05-20 14:46] LABS: Troponin-I High Sensitivity 21.7 ng/L (<3.5-35.0)
[2022-05-20 14:53] LABS: TSH reflex Free T4 (Prenatal) 0.21 uIU/mL
[2022-05-20 14:57] LABS: Alanine Aminotransferase 10 U/L (0-40); Albumin Level 3.8 g/dL (3.5-5.0); Alkaline Phosphatase 90 U/L (39-117); Anion Gap 15 (12-20); Aspartate Amino Transferase 18 U/L (5-37); Bilirubin Total 3.2 mg/dL (0.0-1.0); Blood Urea Nitrogen 11 mg/dL (9-16); Calcium 9.3 mg/dL (8.4-10.2); Carbon Dioxide 25 mmol/L (22-29); Chloride 108 mmol/L (96-108); Creatinine Clr Calc Pharmacy 100.7; Estimated Glomerular Filt Rate > 60; Glucose Random 95 mg/dL (60-115); Magnesium 2.3 mg/dL (1.6-2.6); Potassium 4.5 mmol/L (3.3-5.1); Sodium 143 mmol/L (135-145); Total Protein 6.5 g/dL (6.5-8.0)
[2022-05-20 15:33] VITALS: BP 132/90; RESP 16; TEMP 36.6; O2SAT 98
[2022-05-21 08:19] LABS: HBS Num1 1.27 mIU/mL (0-7.99); HBc Num1 0.09 S/CO (0.00-0.79); HBsAGNum1 0.22 S/CO (0.00-0.99); Hepatitis B Core Antibody Nonreactive (Nonreactive); Hepatitis B Surface Antigen Negative (Negative); ~HepC Num1 0.09 S/CO (0.00-0.79); ~Hepatitis B Surface Antibody NONREACTIVE (Nonreactive); ~Hepatitis C Antibody Nonreactive (Nonreactive)
[2022-05-23 07:24] LABS: Hepatitis A Antibody IgM 0.13 Index (0-0.79); ~Hepatitis A Antibody IgM Nonreactive (Nonreactive)
== END 2022-05-20 15:47 | disposition home or self-care (01) ==
PROVIDERS: Physician Assistant Medical; Emergency Provider Emergency Medicine; PCP Internal Medicine
DX: J40 Bronchitis, not specified as acute or chronic (principal); R53.1 Weakness; R50.9 Fever, unspecified; R10.9 Unspecified abdominal pain; Z20.822 Contact with and (suspected) exposure to COVID-19; Z79.899 Other long term (current) drug therapy
CPT/HCPCS: 36415; 71046; 74176; 80053; 83605; 83735; 84484; 85025; 85610; 86704; 86706; 86709; 86803; 87040; 87340; 87635; 93005; 99285

== ENCOUNTER 2022-06-28 08:08 | Outpatient (REF) | payer OTHER, SELFPAY | END 2022-06-28 08:09 | disposition home or self-care (01) | LOC: HO.US 08:08 | PROVIDERS: Visit Provider Nurse Practitioner | DX: Z13.89 Encounter for screening for other disorder (principal) ==

== ENCOUNTER → 2022-08-13 15:00 | Outpatient (BNVA) | payer OTHER, SELFPAY | PROVIDERS: PCP Internal Medicine; Visit Provider Internal Medicine | DX: G71.00 Muscular dystrophy, unspecified (principal); R05.3 Chronic cough | CPT/HCPCS: 99202 ==